=== PATIENT | female | born 2000 | race Asian ===

== ENCOUNTER 2021-01-07 08:21 | Emergency (ER) | payer MEDICAID ==
[~2021-01-07] VITALS: Ht 152.4 cm; Wt 43.5 kg
--- NOTE | 2021-01-07 09:54 | NUR ---
ELECTION JUDGE: PT TO ROOM FROM LOBBY VIA W/C
--- NOTE | 2021-01-07 10:10 | NUR ---
THIS IS A 20 YR OLD FEMALE WHO STATES LMP Nov PRESENTS TO ER WITH LIGHT VAGINAL SPOTTING AND LOWER ABD CRAMPING
[2021-01-07 10:21] VITALS: BP 111/65
[2021-01-07 10:27] LABS: MICROSCOPIC NOT IND
[2021-01-07 11:10] LABS: ANION GAP 7 mmol/L (5-15); CALCIUM 9.8 mg/dL (8.5-10.1); CHLORIDE 108 mmol/L (98-107); CREATININE 0.73 mg/dL (0.55-1.02)
[2021-01-07 11:17] LABS: BASOPHILS % (AUTO) 3 % (0-1); EOSINOPHILS % (AUTO) 1 % (1-7); LYMPHOCYTES % (AUTO) 43 % (22-44); MEAN CORPUSCULAR HEMOGLOBIN 23.5 pg (27.0-34.8); MEAN PLATELET VOLUME 9.8 fL (7.4-10.4); MONOCYTES % (AUTO) 5 % (2-9); NEUTROPHILS % (AUTO) 48 % (42-75); PLATELET COUNT 211 x10^3/uL (130-400); RED BLOOD COUNT 5.08 x10^6/uL (3.82-5.3); RED CELL DISTRIBUTION WIDTH 15.4 % (9.6-15.2)
== END 2021-01-07 12:32 | disposition home or self-care (01) ==
LOC: ED 11:08
DX: N89.8 Other specified noninflammatory disorders of vagina (principal); R10.2 Pelvic and perineal pain; R10.30 Lower abdominal pain, unspecified; R11.2 Nausea with vomiting, unspecified
CPT/HCPCS: 36415; 76856; 80048; 81003; 81025; 85025; 99284